=== PATIENT | male | born 1950 | race Caucasian/White ===

== ENCOUNTER → 2018-09-16 | Outpatient (CLI) | payer OTHER | END | disposition home or self-care (01) | LOC: LAB EV 15:16 → LAB SHORT 15:16 | DX: R31.9 Hematuria, unspecified (principal) | CPT/HCPCS: 87086 ==

== ENCOUNTER → 2020-04-09 | Outpatient (CLI) | payer OTHER ==
[~2020-04-09] MED LIST: AUGMENTIN 500-1 EACH PO; BASAGLAR K100 UNIT/1 SC; LISINOPRIL2.5 MG PO; METFORMIN HCL500 M2 PO; ROXICODONE5 MG PO
== END | disposition home or self-care (01) ==
LOC: LAB SHORT 20:34 → LAB 20:34
DX: E11.621 Type 2 diabetes mellitus with foot ulcer (principal); L97.509 Non-pressure chronic ulcer of other part of unspecified foot with unspecified severity
CPT/HCPCS: 87070; 87205

== ENCOUNTER 2020-04-12 11:02 | Inpatient (IN) | payer OTHER ==
[~2020-04-12] VITALS: Ht 185.4 cm; Wt 91.9 kg
[2020-04-12 11:57] LABS: BASOPHILS PERCENT AUTO 1 % (0-2); EOSINOPHILS ABSOLUTE AUTO 0.04 K/mm3 (0.00-0.68); EOSINOPHILS PERCENT AUTO 0 % (0-6); Hematocrit 42.8 % (37.0-53.0); Hemoglobin 14.6 g/dL (13.5-17.5); IMMATURE GRAN ABSOLUTE AUTO 0.34 K/mm3 (0.00-0.10); IMMATURE GRAN PERCENT AUTO 2 % (0-1); LYMPHOCYTES ABSOLUTE AUTO 0.63 K/mm3 (0.84-5.20); LYMPHOCYTES PERCENT AUTO 3 % (21-46); MONOCYTES ABSOLUTE AUTO 1.12 K/mm3 (0.16-1.47); MONOCYTES PERCENT AUTO 5 % (4-13); Mean Corpuscular HGB Conc 34.1 g/dL (31.5-36.5); Mean Corpuscular Volume 85 fL (80-100); Mean Platelet Volume 9.7 fL (9.1-12.4); NEUTROPHILS ABSOLUTE AUTO 19.38 K/mm3 (1.96-9.15); NEUTROPHILS PERCENT AUTO 90 % (41-73); Platelet Count 357 K/mm3 (150-400); RDW Coefficient Variation 11.7 % (11.7-14.2); RDW Standard Deviation 35.8 fL (35.1-46.3); Red Blood Cell Count 5.04 M/mm3 (4.30-5.90); White Blood Cell Count 21.61 K/mm3 (4.00-11.30)
[2020-04-12 12:10] LABS: Albumin, Blood 3.2 g/dL (3.4-5.0); Albumin/Globulin Ratio 0.5 (0.8-1.8); Bilirubin, Total 0.6 mg/dL (0.1-1.0); Bun/Creatinine Ratio 21.9 (12.0-20.0); Calcium, Blood 9.7 mg/dL (8.5-10.1); Creatinine, Blood 1.37 mg/dL (0.60-1.20); Potassium, Blood 3.9 mmol/L (3.5-5.5); Total Protein, Blood 9.2 g/dL (6.4-8.2)
[2020-04-12] MEDS ORDERED: METFORMIN HCL500 M2 PO (12:38)
[2020-04-12] MEDS ORDERED: LISINOPRIL2.5 MG PO (12:38)
[2020-04-12] MEDS ORDERED: BASAGLAR K100 UNIT/1 SC (12:55)
--- NOTE | 2020-04-12 21:39 | NUR ---
ANKIT STATES THAT HE HAS BEEN HAVING DIFFICULTIES WITH URINATING BLOOD, INCLUDING EPISODES WITH CLOTS, FOR APPROX 2 YEARS. HE STATES HE HAS UNDERGONE WORKUP FOR PROSTATE CANCER AND DID UNDERGO TREATMENT. HE STATES THAT HE DEVELOPED SEVERE KIDNEY PAIN APPROX ONE WEEK AGO AFTER THE INFECTION IN HIS LEFT FOOT STARTED. HE DENIES ANY DIFFICULTY URINATING.
[2020-04-13 04:47] LABS: BASOPHILS ABSOLUTE AUTO 0.05 K/mm3 (0.00-0.23); BASOPHILS PERCENT AUTO 0 % (0-2); EOSINOPHILS ABSOLUTE AUTO 0.18 K/mm3 (0.00-0.68); EOSINOPHILS PERCENT AUTO 1 % (0-6); Hematocrit 32.6 % (37.0-53.0); IMMATURE GRAN ABSOLUTE AUTO 0.18 K/mm3 (0.00-0.10); IMMATURE GRAN PERCENT AUTO 1 % (0-1); LYMPHOCYTES ABSOLUTE AUTO 0.75 K/mm3 (0.84-5.20); LYMPHOCYTES PERCENT AUTO 6 % (21-46); MONOCYTES ABSOLUTE AUTO 0.81 K/mm3 (0.16-1.47); MONOCYTES PERCENT AUTO 6 % (4-13); Mean Corpuscular HGB 28.6 pg (26.0-34.0); Mean Corpuscular HGB Conc 33.7 g/dL (31.5-36.5); Mean Corpuscular Volume 85 fL (80-100); Mean Platelet Volume 9.4 fL (9.1-12.4); NEUTROPHILS PERCENT AUTO 85 % (41-73); Platelet Count 276 K/mm3 (150-400); RDW Coefficient Variation 11.7 % (11.7-14.2); RDW Standard Deviation 35.6 fL (35.1-46.3); Red Blood Cell Count 3.85 M/mm3 (4.30-5.90); White Blood Cell Count 12.87 K/mm3 (4.00-11.30)
[2020-04-13 05:25] LABS: Albumin, Blood 2.1 g/dL (3.4-5.0); Albumin/Globulin Ratio 0.5 (0.8-1.8); Bilirubin, Total 0.3 mg/dL (0.1-1.0); Bun/Creatinine Ratio 18.6 (12.0-20.0); Calcium, Blood 8.5 mg/dL (8.5-10.1); Creatinine, Blood 1.29 mg/dL (0.60-1.20); Globulin, Blood 4.5 g/dL (2.2-4.0); Potassium, Blood 3.8 mmol/L (3.5-5.5); Total Protein, Blood 6.6 g/dL (6.4-8.2)
--- NOTE | 2020-04-13 05:58 | NUR ---
SHIFT SUMMARY: ANKIT IS A&OX4. VSS, NO ACUTE EVENTS OVERNIGHT. TOLERATING PO INTAKE WELL. IV TO R AC PATENT. USING URINAL WITHOUT DIFFICULTY. BLOOD SUGAR ELEVATED. PT REPORTS SUGARS RUNNING IN THE 200-250 RANGE AT HOME. DRESSING TO L FOOT C/D&I. HE USES HIS CALL LIGHT APPROPRIATELY. HE DOES REPORT THAT HE HAS THREE DESCENDING STEPS INTO HIS HOME AND THAT HE LIVES ALONE. HE STATES THAT HIS NEIGHBOR HAS BEEN ASSISTING HIM TO CHANGE THE DRESSING ON HIS FOOT. HE IS LYING IN BED WITH HIS CALL LIGHT IN REACH. WILL REPORT TO DAY SHIFT RN.
--- NOTE | 2020-04-13 07:56 | NUR ---
DISCUSSED PT'S STATUS EARLIER WITH DR WILSON HE CAME TO SEE THE PT THIS AM. PT TO STAY TODAY, THAT HE WILL CHANGE DRESSING TOMMORROW.
--- NOTE | 2020-04-13 14:27 | NUR ---
PT BEEN EATING AND DRINKING. PT BEEN VOIDING. PT PAIN CONTROLLED WITH PO PAIN MEDICATIONS. PT WORKED WITH THERAPY. MACHINE SETTER BEEN TO SEE PT WHEN FAMILY IN ROOM. PT PLEASANT AND COOPERATIVE. PT USING CALL LIGHT APPR.
--- NOTE | 2020-04-13 15:08 | NUR ---
OTHER SARAH Hooker GIVEN REPORT AND IS ASSUMING CARE OF PT.
--- NOTE | 2020-04-13 15:39 | NUR ---
ASSUMING CARE OF PATIENT. PT APPEARS COMFORTABLE IN BED. REPORTS PAIN 06/24. REPOSITIONED LEFT LEG ON PILLOWS TO ELEVATE. DRESSING APPEARS CDI. CALL LIGHT WITHIN REACH.
--- NOTE | 2020-04-13 23:31 | NUR ---
SPOKE TO JORGE LUIS HOSPITALIST REGARDING PTS NEW COMPLAINT OF PAIN WITH URINATING. JORGE LUIS ORDERED LABS IN THE AM. WILL CONTINUE TO MONITOR PTS OUTPUT AND WAIT FOR LAB RESULTS IN THE AM.
[2020-04-14 04:27] LABS: Albumin, Blood 2.1 g/dL (3.4-5.0); Anion Gap 5 mmol/L (6-16); Blood Urea Nitrogen 17 mg/dL (8-24); Bun/Creatinine Ratio 12.3 (12.0-20.0); CO2, Blood 27 mmol/L (21-32); Calcium, Blood 8.1 mg/dL (8.5-10.1); Chloride, Blood 104 mmol/L (98-108); Creatinine, Blood 1.38 mg/dL (0.60-1.20); Glomerular Filtration Rate 54 (60-); Glucose, Blood 120 mg/dL (70-99); Phosphorus, Blood 3.2 mg/dL (2.5-4.9); Potassium, Blood 3.5 mmol/L (3.5-5.5); Sodium, Blood 136 mmol/L (136-145)
--- NOTE | 2020-04-14 04:27 | NUR ---
SHIFT SUMMARY: POD 2 LEFT FOOT TOE AMPUTATION PT IS ALERT AND ORIENTED X4 WHEN AWAKE. HE HAS BEEN SLEEPING MAJORITY OF THE SHIFT BUT IS EASILY AROUSABLE. HE HAS BEEN VOIDING WITH THE URNAL. PT HAS NOT NEEDED ANY PAIN MEDICATIONS SO FAR THIS SHIFT. PT IS WORKING WITH PT/OT. ZULLY WRAP IS C/D/I. DAYSHIFT NURSE STATED HE HAS BEEN TOLERATING FOOD. CALL LIGHT WITHIN REACH. THE PLAN IS FOR DR. WILSON WILL CHANGE THE DRESSING TODAY. ALSO WAITING ON CULTURES ON HIS FOOT TO SEE WHAT THE PLAN IS NEXT.
[2020-04-14] MEDS ORDERED: ROXICODONE5 MG PO (13:44)
[2020-04-14] MEDS ORDERED: AUGMENTIN 500-1 EACH PO (13:46)
--- NOTE | 2020-04-14 13:56 | NUR ---
SPOKE WITH PT CONCERNING SAFETY AT DISCHARGE. PHYSICAL THERAPY RECOMMENDS USE OF FWW AND WHEELCHAIR. PER CONVERSATION PT HAD WITH DR. WILSON, PT BELIEVES CRUTCHES WOULD BE THE BETTER OPTION. PT IS HAVING A FRIEND PICK CRUTCHES UP FOR HIM THAT HE WILL USE UPON DISCHARGE. PT GIVEN SCRIPT FOR FWW AND WHEELCHAIR FROM DR. ROSALIA ONEILL. PHYSCIAL THERAPY ALSO RECOMMENDED HELP AT HOME AND THAT THE PT LIVE WITH HIS DAUGHTER. PT REPORTS THAT "HE KNOWS HIS RIGHTS" AND WOULD RATHER BE HOME. SEE [facility] NOTES
--- NOTE | 2020-04-14 15:51 | NUR ---
PT TAKING SHOWER AND CALLED THIS RN INTO ROOM. PT SITTING ON CHAIR IN SHOWER AND REPORTS THAT HE VOIDED BLOOD CLOTS. THERE ARE ABOUT 3 DIME SIZE CLOTS ON THE SHOWER FLOOR. PT'S URINE WAS YELLOW AND CLOUDY THIS AM, BUT BEFORE PT GOT INTO SHOWER URINE WAS ANDERSON. PT DENIES DIZZINESS. DR. LINDSEY MADE AWARE.
--- NOTE | 2020-04-14 16:38 | NUR ---
DISCHARGE: PACKET PRINTED AND PT EDUCATED. PT VERBALIZED UNDERSTANDING. PT LEFT UNIT VIA WHEELCHAIR AT ABOUT 1630 ACCOMPANIED BY THIS RN.
== END 2020-04-14 16:35 | disposition home or self-care (01) | DRG 617 ==
LOC: ER 11:02 → SURS 12:25
PROVIDERS: Emergency Medicine; Nurse Practitioner Acute Care; Podiatrist Foot & Ankle Surgery; ADMIT Internal Medicine
PROC: 0Y6N0ZC Detachment at Left Foot, Partial 3rd Ray, Open Approach (ICD-10-PCS; 2020-04-12)
PROC: 0Y6N0ZD Detachment at Left Foot, Partial 4th Ray, Open Approach (ICD-10-PCS; 2020-04-12)
PROC: 0Y6N0ZF Detachment at Left Foot, Partial 5th Ray, Open Approach (ICD-10-PCS; 2020-04-12)
PROC: 0Y6N0Z9 Detachment at Left Foot, Partial 1st Ray, Open Approach (ICD-10-PCS; principal; 2020-04-12 14:00)
PROC: 0Y6N0ZB Detachment at Left Foot, Partial 2nd Ray, Open Approach (ICD-10-PCS; 2020-04-12 14:00)
DX: E11.621 Type 2 diabetes mellitus with foot ulcer (principal); L02.612 Cutaneous abscess of left foot; L03.116 Cellulitis of left lower limb; E11.42 Type 2 diabetes mellitus with diabetic polyneuropathy; Z79.4 Long term (current) use of insulin; E11.22 Type 2 diabetes mellitus with diabetic chronic kidney disease; N18.30 Chronic kidney disease, stage 3 unspecified; C61 Malignant neoplasm of prostate; L97.521 Non-pressure chronic ulcer of other part of left foot limited to breakdown of skin
CPT/HCPCS: 36415; 73701; 80053; 80069; 82947; 83605; 85025; 87040; 87070; 87075; 87077; 87147; 87186; 87205; 87335; 88307; 88311; 90471; 90714; 96365-59; 97116; 97161; 97530; 99284-25; A9270-GY; J1650; J1815; J2370; J2405; J2543; J2704; J2765; J3010; J3370; J7030; J7050; J7120; Q2038; Q9967; U0004

== ENCOUNTER → 2020-04-12 | Outpatient (CLI) | payer OTHER ==
[2020-04-12 10:34] LABS: BASOPHILS ABSOLUTE AUTO 0.05 K/mm3 (0.00-0.23); BASOPHILS PERCENT AUTO 0 % (0-2); EOSINOPHILS ABSOLUTE AUTO 0.04 K/mm3 (0.00-0.68); EOSINOPHILS PERCENT AUTO 0 % (0-6); Hematocrit 36.5 % (37.0-53.0); Hemoglobin 12.7 g/dL (13.5-17.5); IMMATURE GRAN ABSOLUTE AUTO 0.35 K/mm3 (0.00-0.10); IMMATURE GRAN PERCENT AUTO 2 % (0-1); LYMPHOCYTES PERCENT AUTO 3 % (21-46); MONOCYTES PERCENT AUTO 6 % (4-13); Mean Corpuscular HGB 28.9 pg (26.0-34.0); Mean Corpuscular HGB Conc 34.8 g/dL (31.5-36.5); Mean Corpuscular Volume 83 fL (80-100); Mean Platelet Volume 9.4 fL (9.1-12.4); NEUTROPHILS ABSOLUTE AUTO 15.91 K/mm3 (1.96-9.15); NEUTROPHILS PERCENT AUTO 88 % (41-73); Platelet Count 318 K/mm3 (150-400); RDW Coefficient Variation 11.8 % (11.7-14.2); RDW Standard Deviation 35.9 fL (35.1-46.3); Red Blood Cell Count 4.39 M/mm3 (4.30-5.90); White Blood Cell Count 18.05 K/mm3 (4.00-11.30)
[2020-04-12 10:45] LABS: Bun/Creatinine Ratio 18.2 (12.0-20.0); Creatinine, Blood 1.59 mg/dL (0.60-1.20); Potassium, Blood 4.2 mmol/L (3.5-5.5)
== END ==
LOC: LAB SHORT 10:24 → LAB EV 10:24
PROVIDERS: Physician Assistant
DX: L02.612 Cutaneous abscess of left foot (principal); L03.90 Cellulitis, unspecified
CPT/HCPCS: 36415; 80048; 85025

== ENCOUNTER → 2020-04-17 | Outpatient (CLI) | payer OTHER | END | disposition home or self-care (01) | LOC: LAB EV 09:00 → LAB SHORT 09:00 | DX: R30.9 Painful micturition, unspecified (principal) | CPT/HCPCS: 87086 ==